=== PATIENT | male | born 1940 | race Caucasian/White ===

== ENCOUNTER 2022-08-14 16:17 | Emergency (ER) | payer MEDICAID ==
[~2022-08-14] VITALS: Ht 165.1 cm; Wt 69.4 kg
[2022-08-14 16:36] VITALS: BP 116/73; PULSE 107; RESP 16; TEMP 99; O2SAT 97
--- NOTE | 2022-08-14 17:04 | NUR ---
assume care of tpt at this time, placed on monitor, b/p, blood drawn, urine collected, 20g LAC
--- NOTE | 2022-08-14 17:28 | NUR ---
XRAY AT BEDSIDE AT THIS TIME
[2022-08-14 17:36] LABS: BASOPHILS # (AUTO) 0.1 K/uL (0.00-0.22); BASOPHILS % (AUTO) 0.7 % (0.0-2.0); EOSINOPHILS # (AUTO) 0.3 K/uL (0-0.4); EOSINOPHILS % (AUTO) 3.7 % (0.0-4.0); HEMATOCRIT 37.8 % (36-52); HEMOGLOBIN 12.6 g/dL (12.0-18.0); LYMPHOCYTES # (AUTO) 1.8 K/uL (2.0-11.5); LYMPHOCYTES % (AUTO) 25.1 % (20.5-51.1); MEAN CORPUSCULAR HEMOGLOBIN 30 pg (27-31); MEAN CORPUSCULAR HGB CONC 33 g/dL (33-37); MEAN CORPUSCULAR VOLUME 89.2 fL (80-94); MONOCYTES # (AUTO) 0.5 K/uL (0.8-1.0); MONOCYTES % (AUTO) 7.2 % (1.7-9.3); NEUTROPHILS # (AUTO) 4.5 K/uL (1.8-7.7); NEUTROPHILS % (AUTO) 63.3 % (42.2-75.2); PLATELET COUNT (AUTO) 147 K/uL (140-450); RED BLOOD CELL COUNT(AUTO) 4.24 MIL/uL (4.20-6.10); RED CELL DISTRIBUTION WIDTH 16.2 % (11.6-13.7); WHITE BLOOD COUNT (AUTO) 7.1 K/uL (4.8-10.8)
[2022-08-14 18:07] LABS: ALBUMIN 3.2 g/dL (3.4-5.0); ANION GAP 10.4 (8-16); ASPARTATE AMINOTRANSFERASE 50 U/L (15-37); CARBON DIOXIDE 31.9 mmol/L (21-32); CHLORIDE 101 mmol/L (98-107); CREATININE 2.1 mg/dL (0.6-1.3); GLUCOSE 185 mg/dL (74-106); POTASSIUM 4.3 mmol/L (3.5-5.1); SODIUM SERUM 139 mmol/L (136-145); TOTAL BILIRUBIN 0.6 mg/dL (0.0-1.0); UREA NITROGEN, BLOOD 39 mg/dL (7-18)
[2022-08-14] MEDS ORDERED: ACET-10509 PO (19:24)
[2022-08-14] MEDS ORDERED: HYDROcodone/APAP 5/325 MG 1 TAB TAB PO ONE (19:25)
[2022-08-14] MEDS ORDERED: GABA300C PO (19:27)
--- NOTE | 2022-08-14 19:39 | NUR ---
DR RODRIGUEZ AT BEDSIDE
--- NOTE | 2022-08-14 19:50 | NUR ---
PT RESTING IN BED WITH HOB ELEVATED ON BEDSIDE PATCH WASHER. PAIN LEVEL 8/10 R SHOULDER PAIN. PT BEING SEEN FOR SYNCOPE. AZERI SPEAKING ONLY. PT IS PENDING DISPO. DAUGHTER AT BEDSIDE
--- NOTE | 2022-08-14 20:29 | NUR ---
RIGHT WRIST SPLINT AND SLING, CMS
[2022-08-14 20:30] VITALS: BP 146/70; PULSE 95; RESP 18; O2SAT 96
--- NOTE | 2022-08-14 20:30 | NUR ---
Patient discharged with v/s stable. Written and verbal after care instructions given and explained. Patient verbalized understanding. Ambulatory with steady gait. All questions addressed prior to discharge. Advised to follow up with PMD.
--- NOTE | 2022-08-14 20:54 | NUR ---
The patient's care was reviewed and supervised by Rylee Casey RN.
== END 2022-08-14 20:30 | disposition home or self-care (01) ==
LOC: MED 16:17
DX: S40.011A Contusion of right shoulder, initial encounter (principal); S60.211A Contusion of right wrist, initial encounter; E11.65 Type 2 diabetes mellitus with hyperglycemia; R51.9 Headache, unspecified; R55 Syncope and collapse; N18.9 Chronic kidney disease, unspecified; M19.90 Unspecified osteoarthritis, unspecified site; W18.30XA Fall on same level, unspecified, initial encounter; Y93.89 Activity, other specified; Y92.89 Other specified places as the place of occurrence of the external cause; Y99.8 Other external cause status
CPT/HCPCS: 36415; 70450; 73030; 73110; 80053; 84484; 85025; 93005; 99285